=== PATIENT | female | born 1995 | race Caucasian/White ===

== ENCOUNTER → 2018-03-25 | Outpatient (CLI) | payer BC ==
[~2018-03-25] MED LIST: ACE325 PO; AZIT500T44 PO; CALC-515; CEP125L PO; DOCU-416 PO; ETON68IM SQ; FLU150 PO; FLUC150T40 PO; HYOS0.128 PO; IBUP800T37 PO; LEVO1IUD2 IY; METO-566 PO; METR-119 PO; MULT1CAP41 PO; NITR-105 PO; OMEP-125 PO; OMEP-218 PO; ONDA4TAB PO; ONDA4TAB9 PO; OXYC-865 PO; PANT20TA27 PO; PANT40SU3 PO; PANT40TA65 PO; PER PO; PREN1TAB15 PO; PROC-35 PO; RANI-366 PO; URISTAT PO; implanon
== END ==
LOC: LAB 18:50
PROVIDERS: ATTEND Obstetrics & Gynecology
DX: R30.0 Dysuria (principal)
CPT/HCPCS: 81001; 87077; 87088; 87186

== ENCOUNTER → 2018-08-01 | Outpatient (CLI) | payer BC ==
[~2018-08-01] MED LIST changes: +CIPR-345 PO; -LEVO1IUD2 IY; +LEVO1IUD3 IY; +METR500T15 PO
== END ==
LOC: LAB 16:17
PROVIDERS: ATTEND Advanced Practice Midwife
DX: R30.0 Dysuria (principal); R35.0 Frequency of micturition
CPT/HCPCS: 81001

== ENCOUNTER 2018-08-06 12:39 | Emergency (ER) | payer BC ==
[2014-01-31 15:24] VITALS: Wt 83.9 kg
--- NOTE | 2018-08-06 12:40 | ER Report ---
History and Physical Time Seen By MD: 12:40 HPI/ROS CHIEF COMPLAINT: Urinary tract infection symptoms HISTORY OF PRESENT ILLNESS: Patient is 23-year-old female who developed urinary tract infection symptoms at the end of July. She was seen by her primary care provider and placed on Macrobid. Unfortunately the lab throughout the urine culture so we do not have sensitivities for the infection. Patient has taken her antibiotics but is still experiencing her urinary frequency pain and appears somewhat uncomfortable. She denies any flank or back pain. She denies any fevers or chills. She did feel nauseous this morning but now feels better. Allergies: Coded Allergies: Sulfa (Sulfonamide Antibiotics) (Verified Allergy, Mild, 08/06/18) Home Meds Active Scripts Phenazopyridine Hcl (PHENAZOPYRIDINE HCL) 200 Mg Tablet, 200 MG PO TID, #9 TAB 0 Refills Prov:JUSTIN DEAL MD 08/06/18 Hydrocodone Bit/Acetaminophen (HYDROCODON-ACETAMINOPHEN 5-325) 1 Each Tablet, 1 EACH PO Q4H PRN for PAIN, #12 TAB 0 Refills Prov:JUSTIN DEAL MD 08/06/18 Ondansetron Hcl (ZOFRAN) 4 Mg Tablet, 4 MG PO Q8H for Nausea, #15 TAB 0 Refills Prov:JUSTIN DEAL MD 08/06/18 Cephalexin 500 Mg Tab (KEFLEX 500 MG TAB) 500 Mg Tablet, 500 MG PO Q6H, #20 TAB 0 Refills TAKE ONE TABLET BY MOUTH EVERY SIX HOURS Prov:JUSTIN DEAL MD 08/06/18 Nitrofurantoin Monohyd/M-Cryst (MACROBID 100 MG CAPSULE) 100 Mg Capsule, 100 MG PO Q12H for UTI for 5 Days, #10 CAPSULE 0 Refills Prov:GENNY WASHINGTON CNM 08/01/18 Discontinued Scripts Nitrofurantoin Monohyd/M-Cryst (MACROBID 100 MG CAPSULE) 100 Mg Capsule, 100 MG PO BID, #4 CAPSULE 0 Refills Prov:HARRIS JORGE MD 08/03/18 Fluconazole (DIFLUCAN) 150 Mg Tablet, 150 MG PO QDAY, #3 TAB 0 Refills Take one tablet po on days 1, 3 and 7 of antibiotics. Prov:HARRIS JORGE MD 07/05/18 Metronidazole (METRONIDAZOLE) 500 Mg Tablet, 500 MG PO BID, #14 TAB 0 Refills Prov:LUISITOHARRIS Weiss MD 07/05/18 Past Medical/Surgical History History of recurrent urinary tract infections followed by Dr. Xiao and had ureteral dilatation surgery. Hx Smoking: No Smoking Status: Never Smoker Exposure to Second Hand Smoke?: Yes Constitutional Vital Sign - Last 24 Hours 08/06/18 12:46 Temp 97.6 Pulse 86 Resp 20 B/P (MAP) 119/89 Pulse Ox 93 O2 Delivery Room Air Physical Exam General appearance: Alert no distress. She looks extremely uncomfortable secondary to urinary symptoms. Respiratory: Chest is non tender, lungs are clear to auscultation. Cardiac: Regular rate and rhythm [ ] Abdominal exam:suprapubic abdominal pain Medical Decision Making Data Points Result Diagram: 08/06/18 1302 08/06/18 1302 Laboratory Hematology Test 08/06/18 12:48 08/06/18 13:02 Urine Color [place] Urine Clarity Clear Urine pH 5.0 pH (4.8-9.5) Urine Specific [place] 1.025 Urine Protein 30 mg/dL (NEGATIVE) Urine Glucose (UA) 50 mg/dL (NEGATIVE) Urine Ketones 20 mg/dL (NEGATIVE) Urine Blood Negative (NEGATIVE) Urine Nitrite Positive (NEGATIVE) Urine Bilirubin Negative (NEGATIVE) Urine Urobilinogen 4.0 mg/dL (0.2-1.9) Urine Leukocyte Esterase Negative (NEGATIVE) Urine RBC <1 /HPF (0-2/HPF) Urine WBC None /HPF (0-5/HPF) Urine Squamous Epithelial Cells Many /LPF (</=FEW) Urine Bacteria Few /HPF (NONE-FEW) Urine Hyaline Casts Few /LPF (NONE-FEW) Urine Mucus Few /HPF (NONE-FEW) Urine HCG, Qualitative Negative (NEGATIVE) Red Blood Count 5.47 M/uL (4.17-5.56) Mean Corpuscular Volume 92.3 fL (80.0-96.0) Mean Corpuscular Hemoglobin 31.6 pg (26.0-33.0) Mean Corpuscular Hemoglobin Concent 34.2 g/dL (32.0-36.0) Red Cell Distribution Width 13.1 % (11.5-14.5) Mean Platelet Volume 8.0 fL (7.2-11.1) Neutrophils (%) (Auto) 82.0 % (39.4-72.5) Lymphocytes (%) (Auto) 11.3 % (17.6-49.6) Monocytes (%) (Auto) 5.6 % (4.1-12.4) Eosinophils (%) (Auto) 0.8 % (0.4-6.7) Basophils (%) (Auto) 0.3 % (0.3-1.4) Nucleated RBC Relative Count (auto) 0.1 /100WBC Neutrophils # (Auto) 9.9 K/uL (2.0-7.4) Lymphocytes # (Auto) 1.4 K/uL (1.3-3.6) Monocytes # (Auto) 0.7 K/uL (0.3-1.0) Eosinophils # (Auto) 0.1 K/uL (0.0-0.5) Basophils # (Auto) 0.0 K/uL (0.0-0.1) Nucleated RBC Absolute Count (auto) 0.01 K/uL Sodium Level 135 mmol/L (137-145) Potassium Level 4.4 mmol/L (3.5-5.0) Chloride Level 107 mmol/L (98-107) Carbon Dioxide Level 21 mmol/L (22-31) Blood Urea Nitrogen 10 mg/dl (7-18) Creatinine 0.70 mg/dl (0.52-1.04) Glomerular Filtration Rate Calc > 60.0 Random Glucose 70 mg/dl (75-110) Calcium Level 8.9 mg/dl (8.4-10.2) Chemistry Test 08/06/18 12:48 08/06/18 13:02 Urine Color [place] Urine Clarity Clear Urine pH 5.0 pH (4.8-9.5) Urine Specific [place] 1.025 Urine Protein 30 mg/dL (NEGATIVE) Urine Glucose (UA) 50 mg/dL (NEGATIVE) Urine Ketones 20 mg/dL (NEGATIVE) Urine Blood Negative (NEGATIVE) Urine Nitrite Positive (NEGATIVE) Urine Bilirubin Negative (NEGATIVE) Urine Urobilinogen 4.0 mg/dL (0.2-1.9) Urine Leukocyte Esterase Negative (NEGATIVE) Urine RBC <1 /HPF (0-2/HPF) Urine WBC None /HPF (0-5/HPF) Urine Squamous Epithelial Cells Many /LPF (</=FEW) Urine Bacteria Few /HPF (NONE-FEW) Urine Hyaline Casts Few /LPF (NONE-FEW) Urine Mucus Few /HPF (NONE-FEW) Urine HCG, Qualitative Negative (NEGATIVE) White Blood Count 12.1 k/uL (4.5-11.0) Red Blood Count 5.47 M/uL (4.17-5.56) Hemoglobin 17.3 g/dL (12.0-16.0) Hematocrit 50.4 % (34.0-47.0) Mean Corpuscular Volume 92.3 fL (80.0-96.0) Mean Corpuscular Hemoglobin 31.6 pg (26.0-33.0) Mean Corpuscular Hemoglobin Concent 34.2 g/dL (32.0-36.0) Red Cell Distribution Width 13.1 % (11.5-14.5) Platelet Count 205 K/uL (150-450) Mean Platelet Volume 8.0 fL (7.2-11.1) Neutrophils (%) (Auto) 82.0 % (39.4-72.5) Lymphocytes (%) (Auto) 11.3 % (17.6-49.6) Monocytes (%) (Auto) 5.6 % (4.1-12.4) Eosinophils (%) (Auto) 0.8 % (0.4-6.7) Basophils (%) (Auto) 0.3 % (0.3-1.4) Nucleated RBC Relative Count (auto) 0.1 /100WBC Neutrophils # (Auto) 9.9 K/uL (2.0-7.4) Lymphocytes # (Auto) 1.4 K/uL (1.3-3.6) Monocytes # (Auto) 0.7 K/uL (0.3-1.0) Eosinophils # (Auto) 0.1 K/uL (0.0-0.5) Basophils # (Auto) 0.0 K/uL (0.0-0.1) Nucleated RBC Absolute Count (auto) 0.01 K/uL Glomerular Filtration Rate Calc > 60.0 Calcium Level 8.9 mg/dl (8.4-10.2) Urinalysis Test 08/06/18 12:48 Urine Color [place] Urine Clarity Clear Urine pH 5.0 pH (4.8-9.5) Urine Specific [place] 1.025 Urine Protein 30 mg/dL (NEGATIVE) Urine Glucose (UA) 50 mg/dL (NEGATIVE) Urine Ketones 20 mg/dL (NEGATIVE) Urine Blood Negative (NEGATIVE) Urine Nitrite Positive (NEGATIVE) Urine Bilirubin Negative (NEGATIVE) Urine Urobilinogen 4.0 mg/dL (0.2-1.9) Urine Leukocyte Esterase Negative (NEGATIVE) Urine RBC <1 /HPF (0-2/HPF) Urine WBC None /HPF (0-5/HPF) Urine Squamous Epithelial Cells Many /LPF (</=FEW) Urine Bacteria Few /HPF (NONE-FEW) Urine Hyaline Casts Few /LPF (NONE-FEW) Urine Mucus Few /HPF (NONE-FEW) Urine HCG, Qualitative Negative (NEGATIVE) ED Course/Re-evaluation ED Course 08/06/2018 1:01:20 pm this time will be to treat empirically for urinary tract infection. I feel because of the severity of symptoms we should place an IV just check some routine blood work but give IV Rocephin as well as pain medication. We'll be sure to send off a urine culture Decision to Disposition Date: Aug 06, 2018 Decision to Disposition Time: 14:26 Depart Departure Latest Vital Signs Vital Signs Date Time Temp Pulse Resp B/P (MAP) Pulse Ox O2 Delivery O2 Flow Rate FiO2 08/06/18 12:46 97.6 86 20 119/89 93 Room Air Impression: Primary Impression: Acute cystitis Condition: Improved Disposition: HOME OR SELF-CARE Referrals: [facility] [facility] (PCP) 2 Days if urinary tract symptoms persist New Scripts Phenazopyridine Hcl (PHENAZOPYRIDINE HCL) 200 Mg Tablet 200 MG PO TID, #9 TAB 0 Refills Prov: JUSTIN DEAL MD 08/06/18 Hydrocodone Bit/Acetaminophen (HYDROCODON-ACETAMINOPHEN 5-325) 1 Each Tablet 1 EACH PO Q4H PRN for PAIN, #12 TAB 0 Refills Prov: JUSTIN DEAL MD 08/06/18 Ondansetron Hcl (ZOFRAN) 4 Mg Tablet 4 MG PO Q8H for Nausea, #15 TAB 0 Refills Prov: JUSTIN DEAL MD 08/06/18 Cephalexin 500 Mg Tab (KEFLEX 500 MG TAB) 500 Mg Tablet 500 MG PO Q6H, #20 TAB 0 Refills TAKE ONE TABLET BY MOUTH EVERY SIX HOURS Prov: JUSTIN DEAL MD 08/06/18 Patient Instructions: Urinary Tract Infection in Women (DC) Problem Qualifiers Primary Impression: Acute cystitis Hematuria presence: without hematuria Qualified Codes: N30.00 - Acute cystitis without hematuria JUSTIN DEAL MD Aug 06, 2018 12:40
[2018-08-06] MEDS ORDERED: KETOROLAC 15 MG/ML VIAL IVP ONE (12:55)
[2018-08-06] MEDS ORDERED: MORPHINE 4 MG/ML SDV IVP ONE (12:55)
[2018-08-06] MEDS ORDERED: cefTRIAXone 1 GM VIAL IVP ONE (12:55)
[2018-08-06] MEDS ORDERED: ONDANSETRON 4 MG/2 ML VIAL IVP ONE (13:10)
[2018-08-06 13:11] LABS: PLATELET COUNT, AUTOMATED 205 K/uL (150-450)
[2018-08-06] MEDS ORDERED: CEPH500T7 PO (13:30)
[2018-08-06] MEDS ORDERED: LOR5/325 PO (13:30)
[2018-08-06] MEDS ORDERED: ONDA4TAB97 PO (13:30)
[2018-08-06] MEDS ORDERED: PHENAZOPYRIDINE 200 MG TAB PO ONE (13:40)
[2018-08-06] MEDS ORDERED: PHEN200T32 PO (13:42)
[2018-08-06 14:00] VITALS: BP 103/72
== END 2018-08-06 14:32 | disposition home or self-care (01) ==
LOC: ER 12:42
DX: N30.00 Acute cystitis without hematuria (principal)
CPT/HCPCS: 81001; 81025; 85025; 87088; 96374; 96375; 99284; J0696; J1885; J2270; J2405; 82310; 82374; 82435; 82565; 82947; 84132; 84295; 84520

== ENCOUNTER → 2018-08-24 | Outpatient (CLI) | payer BC ==
[~2018-08-24] MED LIST changes: +CEPH500T7 PO; +LOR5/325 PO; +ONDA4TAB97 PO; +PHEN200T32 PO
== END ==
LOC: LAB 10:23
PROVIDERS: ATTEND Urology
DX: N30.00 Acute cystitis without hematuria (principal); R10.9 Unspecified abdominal pain; R82.79 Other abnormal findings on microbiological examination of urine
CPT/HCPCS: 81001; 87088